=== PATIENT | female | born 1960 | race Hispanic/Latino ===

== ENCOUNTER 2024-12-27 06:12 | Observation (INO) | payer MEDICARE ==
[2024-12-26 12:28] LABS: BASOPHILS % 0.6 % (0.0-1.0); EOSINOPHILS % 3.2 % (0.0-6.0); LYMPHOCYTES % 27.5 % (18.0-39.1); MONOCYTES % 7.3 % (4.4-11.3); NEUTROPHILS % 61.2 % (38.7-80.0); RED CELL DISTRIBUTION WIDTH 12.7 % (11.7-14.4)
[2024-12-26 12:45] LABS: INR 1.0
[2024-12-26 13:07] LABS: EST GLOMERULAR FILTRATION RATE 99.0 ML/MIN (>=60)
[2024-12-27] VITALS (7 sets, daily range): BP systolic 114–129; BP diastolic 44–54; PULSE 63–75; RESP 18–20; TEMP 97.3–98.2; O2SAT 98–100
[~2024-12-27] VITALS: Ht 162.6 cm; Wt 89.8 kg
[~2024-12-27 06:12] MED LIST: FARXIGA5 MG PO; LIPITOR10 MG PO; LOSARTAN POTASS25 MG PO; LYRICA50 MG PO; METFORMIN HCL500 MG PO; MOUNJARO2.5 MG/0.5 SC
[2024-12-27] MEDS ORDERED: FENTANYL CITRATE/PF 100MCG/2 ML INJ ONE (07:27)
[2024-12-27] MEDS ORDERED: MIDAZOLAM HCL 2 MG/2 ML VIAL ONE (07:27)
[2024-12-27] MEDS ORDERED: ROCURONIUM BROMIDE 1 ML IV ONE (07:27)
[2024-12-27] MEDS ORDERED: LIDOCAINE HCL 2% LOCAL INJ 5 ML SDV VIAL INJ ONE (07:27)
[2024-12-27] MEDS ORDERED: SEVOFLURANE INHAL SOLN 250 ML PEN BTL ONE (07:28)
[2024-12-27] MEDS ORDERED: FAMOTIDINE 20 MG/2 ML VIAL IV ONE (07:28)
[2024-12-27] MEDS ORDERED: ACETAMINOPHEN 1000 MG/100 ML 100 ML IV ONE (07:28)
[2024-12-27] MEDS ORDERED: PROPOFOL IV EMULSION 10 MG/ML 20 ML VIAL ONE (07:28)
[2024-12-27] MEDS ORDERED: DEXAMETHASONE SOD PHOS INJ 4 MG/ML SDV ONE (08:27)
[2024-12-27] MEDS ORDERED: ONDANSETRON HCL INJ 2MG/ML 2ML 2 MG/ML VIAL ONE (08:27)
[2024-12-27] MEDS ORDERED: KETAMINE HCL INJ 50 MG/ML 10 ML VIAL ONE (08:32)
[2024-12-27] MEDS ORDERED: SUGAMMADEX SODIUM 200 MG/2 ML VIAL IV ONE (08:47)
[2024-12-27] MEDS ORDERED: EPHEDRINE SULFATE INJ 50 MG/ML VIAL ONE (08:53)
[2024-12-27] MEDS: LACTATED RINGER'S 1,000 ML ONE (08:55)
[2024-12-27] MEDS: CEFAZOLIN SODIUM 2 GM ONE (08:55)
[2024-12-27] MEDS ORDERED: HYDROCODON-ACE1 EA12 PO (09:40)
[2024-12-27] MEDS ORDERED: CARISOPRODOL 350 MG TAB PO PRN (09:45)
[2024-12-27] MEDS ORDERED: PROMETHAZINE HCL (IM) 25 MG/ML VIAL IM PRN (09:45)
[2024-12-27] MEDS ORDERED: ZOLPIDEM TARTRATE 5 MG TAB PO PRN (09:45)
[2024-12-27] MEDS ORDERED: PREGABALIN 50 MG CAP PO SCH (09:45)
[2024-12-27] MEDS ORDERED: DEXTROSE 50% SYRINGE 50 ML IV PRN (09:45)
[2024-12-27] MEDS ORDERED: ONDANSETRON HCL INJ 2MG/ML 2ML 2 MG/ML VIAL IV PRN (09:45)
[2024-12-27] MEDS ORDERED: HYDROMORPHONE 2MG/ML IV PRN ×2 (09:45)
[2024-12-27] MEDS ORDERED: CEPACOL SORE THROAT LOZENGES PO PRN (09:45)
[2024-12-27] MEDS ORDERED: ACETAMINOPHEN 325 MG TAB PO PRN (09:45)
[2024-12-27] MEDS ORDERED: MAGNESIUM/ALUMINUM/SIMETHICONE 30 ML UDC PO PRN (09:45)
[2024-12-27] MEDS: FENTANYL CITRATE/PF 100MCG/2 ML INJ ONE (09:54)
[2024-12-27] MEDS ORDERED: LACTATED RINGER'S 1,000 ML ONE (11:18)
[2024-12-27] MEDS: LACTATED RINGER'S 1,000 ML IV SCH (12:12)
[2024-12-27] MEDS: HYDROMORPHONE 1MG/1ML INJ IV PRN (12:22)
[2024-12-27] MEDS: METFORMIN HCL 500 MG TAB PO SCH (16:24)
[2024-12-27] MEDS: ATORVASTATIN 20 MG TAB PO SCH (21:05)
[2024-12-28 03:36] VITALS: BP 136/56; PULSE 68; RESP 18; TEMP 98; O2SAT 100
[2024-12-28 08:39] VITALS: BP 127/70; PULSE 67; RESP 20; TEMP 98.3; O2SAT 100
[2024-12-28 09:00] VITALS: BP 127/70; PULSE 67; RESP 20; TEMP 98.3; O2SAT 100
[2024-12-28] MEDS: LOSARTAN POTASSIUM 25 MG TAB PO SCH (09:49)
[2024-12-28] MEDS: OXYCODONE/ACETAMINOPHEN 5-325 1 EACH TABLET PO PRN (11:45)
[2024-12-28 12:23] VITALS: BP 129/70; PULSE 68; RESP 19; TEMP 98.4; O2SAT 98
[2024-12-28 12:50] VITALS: BP 129/70; PULSE 68; RESP 19; TEMP 98.4; O2SAT 98
== END 2024-12-28 13:25 | disposition home or self-care (01) ==
LOC: OR 06:12 → PACU V 09:33 → MED/SURG2 10:53
PROVIDERS: ADMIT Neurological Surgery; ATTEND Neurological Surgery
DX: M48.062 Spinal stenosis, lumbar region with neurogenic claudication (principal); I10 Essential (primary) hypertension; E11.9 Type 2 diabetes mellitus without complications; Z79.84 Long term (current) use of oral hypoglycemic drugs; Z79.85 Long-term (current) use of injectable non-insulin antidiabetic drugs; Z87.891 Personal history of nicotine dependence; Z01.810 Encounter for preprocedural cardiovascular examination; Z01.812 Encounter for preprocedural laboratory examination; Z01.818 Encounter for other preprocedural examination
CPT/HCPCS: 36415 ×3; 63047; 63048; 71046; 72020; 80048; 82948 ×2; 85025; 85610; 85730; 86850; 86900; 88304; 88311; 93005; 99252; G0378 ×2; J0131; J0690 ×2; J1100; J1171 ×2; J1308; J2003; J2250; J2405; J2704; J3010; J7121